=== PATIENT | male | born 1970 | race Caucasian/White ===

== ENCOUNTER 2022-09-21 19:56 | Emergency (ER) | payer MEDICARE, MEDICAID ==
[~2022-09-21 19:56] MED LIST: Sodium Chloride 0.9% 100 ML BAG ONE
[2022-09-21] MEDS ORDERED: Cefepime 2 GM VIAL ONE (20:25)
[2022-09-21 20:56] LABS: Band 4 % (5-11); Hemoglobin 11.9 g/dL (14.0-18.0); Lymphocytes 9 % (21-51); MDiff Complete? YES; Mean Corpuscular HGB CONC 35.1 g/dL (32.0-36.0); Mean Corpuscular Hemoglobin 32.4 pg (27.0-31.0); Mean Corpuscular Volume 92.5 fl (78.0-98.0); Mean Platelet Volume 8.8 fL (7.4-10.4); Monocytes 2 % (0-10); Neutrophil 85 % (42-75); Platelet Count 139 10x3/uL (130-400); Platelet Morphology Comment Appears Adequate; RBC Distribution Width 11.7 % (11.5-14.5); Red Blood Cell (RBC) Count 3.66 mill/uL (4.70-6.10); White Blood Cell (WBC) Count 9.9 10x3/uL (4.8-10.8)
[2022-09-21 21:05] LABS: ALT (SGPT) 16 U/L (8-55); AST (SGOT) 28 U/L (5-34); Alkaline Phosphatase 78 U/L (40-110); Anion Gap 13 mmol/L (10-20); BUN (Urea Nitrogen) 36 mg/dL (8.4-25.7); Bilirubin, Total 0.7 mg/dL (0.2-1.2); Calc. Creatinine Clearance 0 mL/min (70-130); Calcium 8.9 mg/dL (7.8-10.44); Carbon Dioxide 18 mmol/L (22-29); Chloride 105 mmol/L (98-107); Estimated GFR 39; Globulin 2.7 g/dL (2.4-3.5); Glucose 94 mg/dL (70-105); Potassium 4.2 mmol/L (3.5-5.1); Protein, Total 6.7 g/dL (6.0-8.3); Sodium 132 mmol/L (136-145)
[2022-09-21] MEDS ORDERED: Acetaminophen 500 MG TAB ONE (21:35)
[2022-09-21 21:39] LABS: Bilirubin Negative (Negative); Blood, Urine Negative (Negative); Clarity Clear (Clear); Glucose, Urine (Dipstick) Negative (Negative); Ketone, Urine Negative (Negative); Leukocyte Negative (Negative); Nitrite Negative (Negative); Protein, Urine (Dipstick) Negative (Neg-Trace); Specific Gravity, Urine 1.015 (1.005-1.030); Urobilinogen 0.2 mg/dL (Less than 2); pH, Urine 5.5 (5.0-9.0)
[2022-09-21] MEDS ORDERED: Diazepam 5 MG TAB ONE (21:58)
[2022-09-21] MEDS ORDERED: Lactated Ringer's 1,000 ML ONE (23:49)
[2022-09-22] MEDS ORDERED: Vancomycin HCl 750 MG VIAL ONE (00:17)
[2022-09-22] MEDS ORDERED: Sodium Chloride 0.9% 250 ML 500 ML ONE (00:17)
[2022-09-22 00:32] LABS: Troponin I 0.033 ng/mL (< 0.028)
== END 2022-09-22 00:29 | disposition short-term general hospital (02) ==
LOC: EDBD 19:56 → MADERS 19:56
DX: R50.9 Fever, unspecified (principal)
CPT/HCPCS: 71045; 80053; 81003; 82553; 83605; 83880; 84484; 85025; 87040; 87086; 87149; 87804; 93005; 96365; 96375; J0692; J3370; J3490; J7050; J7120